=== PATIENT | female | born 1960 | race American Indian/Alaskan Native ===

== ENCOUNTER 2017-06-17 10:17 | Emergency (ER) | payer SELFPAY ==
[2017-06-17 10:30] VITALS: BP 148/74
[2017-06-17] MEDS ORDERED: BENADRYL PO ONE (11:42)
[2017-06-17] MEDS ORDERED: PEPCID PO ONE (11:43)
[2017-06-17] MEDS ORDERED: DECADRON IM ONE (11:43)
--- NOTE | 2017-06-17 11:46 | Emergency Department Report ---
HPI - General Chief Complaint: Allergic Reaction - HPI HPI: 56-year-old female past medical history none presents with complaint of itchy scalp and slight forehead swelling since yesterday. Patient states she used a new hair dye which she has not used before and subsequently developed itchy scalp with bumpy skin and slight forehead/periorbital swelling since yesterday. Patient denies any respiratory distress any difficulty breathing any lip swelling or tongue swelling. Patient is awake alert and oriented 3 speaking in full sentences does not appear to be in acute distress. Denies palpitations shortness of breath or any diffuse distributed rash. Patient showing me the hair product that she used which caused the allergic reaction. Took Benadryl at home with some relief of her symptoms ED Past Medical Hx - Past Medical History Previous Medical History?: No - Surgical History Past Surgical History?: No - Social History Smoking Status: Current Every Day Smoker Substance Use Type: None - Medications Home Medications: Home Medications Medication Instructions Recorded Confirmed Last Taken Type EPINEPHrine [Epipen] 0.3 mg IJ ONCE #1 auto.injct 06/17/17 Unknown Rx Famotidine [Pepcid] 20 mg PO BID PRN #30 tablet 06/17/17 Unknown Rx Hydrocortisone 1% [Hydrocortisone 1 applicatio TP TID PRN #1 tube 06/17/17 Unknown Rx 1% CREAM] Loratadine [Claritin] 10 mg PO DAILY #14 tablet 06/17/17 Unknown Rx diphenhydrAMINE [Benadryl CAP] 25 mg PO Q8HR PRN #30 capsule 06/17/17 Unknown Rx ED Review of Systems ROS: Stated complaint: ALLERGIC REACTION Other details as noted in HPI Constitutional: denies: chills, fever Eyes: denies: eye pain, eye discharge, vision change ENT: denies: ear pain, throat pain Respiratory: denies: cough, shortness of breath, wheezing Cardiovascular: denies: chest pain, palpitations Endocrine: no symptoms reported Gastrointestinal: denies: abdominal pain, nausea, diarrhea Genitourinary: denies: urgency, dysuria, discharge Musculoskeletal: denies: back pain, joint swelling, arthralgia Skin: rash, pruritus. denies: lesions Neurological: denies: headache, weakness, paresthesias Psychiatric: denies: anxiety, depression Hematological/Lymphatic: denies: easy bleeding, easy bruising Physical Exam - Physical Exam Vital Signs: Vital Signs 06/17/17 10:25 Temperature 98.3 F Pulse Rate 78 Respiratory 14 Rate Blood Pressure 148/74 O2 Sat by Pulse 99 Oximetry General: General: Well appearing, well nourished, in no distress. Oriented x 3, normal mood and affect .Ambulating without difficulty. Skin: Itchy rash around around edge of/border of scalp HEENT: Head: Normocephalic, atraumatic, no visible or palpable masses, depressions, or scaring. Eyes: EOMI,PERRLA Ears: EACs clear, TMs translucent & mobile, ossicles nl appearance, hearing intact. Nose: No external lesions, mucosa non-inflamed, septum and turbinates normal Pharynx: no oropharyngeal swelling Mucosa non-inflamed, no tonsillar hypertrophy or exudate Neck: Supple, without lesions, bruits, or adenopathy, thyroid non-enlarged and non-tender Heart: No cardiomegaly or thrills; regular rate and rhythm, no murmur or gallop Lungs: Clear to auscultation b/l Abdomen: Bowel sounds normal, no tenderness, organomegaly, masses, or hernia Musculoskeletal: Normal gait and station. No misalignment, asymmetry, crepitation, defects, tenderness, masses, effusions, decreased range of motion, instability, atrophy or abnormal strength or tone in the head, neck, spine, ribs, pelvis or extremities. Neurologic: CN 2-12 normal. Sensation to pain, touch, and proprioception normal. DTRs normal in upper and lower extremities. No pathologic reflexes. ED Course Vital Signs 06/17/17 10:25 Temperature 98.3 F Pulse Rate 78 Respiratory 14 Rate Blood Pressure 148/74 O2 Sat by Pulse 99 Oximetry ED Medical Decision Making - Medical Decision Making A/P: Contact dermatitis, allergic reaction 1-patient has irritated scalp slight forehead/upper orbital swelling but minimal. No lip tongue or oral pharyngeal swelling on clinical exam 2-oatmeal baths, topical hydrocortisone, Benadryl when necessary, Pepcid when necessary, patient given 1 dose of Decadron in the ED, EpiPen for anaphylaxis/ angioedema. I educated patient on signs and symptoms of anaphylaxis and angioedema and instructed her when it is appropriate to use EpiPen 3-follow-up with primary care doctor and tool engineer. I gave patient allergy clinic information [email or web address] [email or web address] stable before discharge, no clincal resp distress Critical care attestation.: If time is entered above; I have spent that time in minutes in the direct care of this critically ill patient, excluding procedure time. ED Disposition Clinical Impression: Contact dermatitis Qualifiers: Contact dermatitis type: allergic Contact dermatitis trigger: dye Qualified Code(s): L23.4 - Allergic contact dermatitis due to dyes Allergic reaction Qualifiers: Encounter type: initial encounter Qualified Code(s): T78.40XA - Allergy, unspecified, initial encounter Disposition: - TO HOME OR SELFCARE Is pt being admited?: No Does the pt Need Aspirin: No Condition: Stable Instructions: Urticaria (ED), Angioedema (ED), Contact Dermatitis (ED) Prescriptions: diphenhydrAMINE [Benadryl CAP] 25 mg PO Q8HR PRN #30 capsule PRN Reason: Allergic Reaction EPINEPHrine [Epipen] 0.3 mg IJ ONCE #1 auto.injct Famotidine [Pepcid] 20 mg PO BID PRN #30 tablet PRN Reason: Allergic Reaction Hydrocortisone 1% [Hydrocortisone 1% CREAM] 1 applicatio TP TID PRN #1 tube PRN Reason: Itching Loratadine [Claritin] 10 mg PO DAILY #14 tablet Referrals: [facility] [Outside] - 3-5 Days [facility] [Provider Group] - 3-5 Days Forms: Work/School Release Form(ED) Time of Disposition: 11:52
== END 2017-06-17 12:30 | disposition home or self-care (01) ==
LOC: ED 10:17
DX: L23.4 Allergic contact dermatitis due to dyes (principal); F17.200 Nicotine dependence, unspecified, uncomplicated
CPT/HCPCS: 96372; 99283; J1100

== ENCOUNTER 2018-01-21 22:46 | Emergency (ER) | payer OTHER ==
--- NOTE | 2018-01-22 01:27 | Emergency Department Report ---
HPI - HPI HPI: This is a 57-year-old female here report that she is having an itchy scalp and some around her eyes since 2 days ago when she used hair dye and here growth product to her here. She said her scabs are itchy. Denies any pain. Denies any swelling of tongue, throat, difficulty swallowing, swollen lips, stridor, wheezing, shortness of breath or chest pain. Denies any coughing or drooling. She said she is having facial swelling to both eyes. She denies any pain. Patient was here on 06/17/2017 for allergic reaction. She was given EpiPen but she said she did not get that filled. She did not take anything over-the- counter she says she came to the hospital to be seen. <YUE WASHINGTON - Last Filed: 01/22/18 01:49> <LAKESHA HOOVER - Last Filed: 01/22/18 17:00> - General Chief Complaint: Allergic Reaction Time Seen by Provider: 01/22/18 00:50 ED Past Medical Hx - Past Medical History Previous Medical History?: Yes Additional medical history: Allergic reaction - Surgical History Past Surgical History?: No - Family History Family history: hypertension - Social History Smoking Status: Current Every Day Smoker <YUE WASHINGTON - Last Filed: 01/22/18 01:49> <LAKESHA HOOVER - Last Filed: 01/22/18 17:00> - Medications Home Medications: Home Medications Medication Instructions Recorded Confirmed Last Taken Type Famotidine [Pepcid] 20 mg PO BID PRN #30 tablet 06/17/17 Unknown Rx Hydrocortisone 1% [Hydrocortisone 1 applicatio TP TID PRN #1 tube 06/17/17 Unknown Rx 1% CREAM] Loratadine [Claritin] 10 mg PO DAILY #14 tablet 06/17/17 Unknown Rx diphenhydrAMINE [Benadryl CAP] 25 mg PO Q8HR PRN #30 capsule 06/17/17 Unknown Rx EPINEPHrine [Epipen] 0.3 mg IJ ONCE PRN #1 auto.injct 01/22/18 Unknown Rx Prednisone [predniSONE 10 mg 10 mg PO .TAPER 6 Days #1 tab.ds.pk 01/22/18 Unknown Rx (6-Day Pack, 21 Tabs)] hydrOXYzine HCL [Atarax] 25 mg PO Q6HR PRN #12 oral.liqd 01/22/18 Unknown Rx ED Review of Systems ROS: Stated complaint: ALLERGIC REACTION Other details as noted in HPI Constitutional: denies: chills, fever Eyes: other (swelling below her eyes). denies: eye pain, eye discharge, vision change ENT: denies: ear pain, throat pain, epistaxis, congestion Respiratory: denies: cough, shortness of breath, SOB with exertion, stridor, wheezing Cardiovascular: denies: chest pain, palpitations, dyspnea on exertion, edema, syncope, paroxysmal nocturnal dyspnea Gastrointestinal: denies: nausea, vomiting Musculoskeletal: denies: back pain, joint swelling, arthralgia Skin: pruritus. denies: rash, lesions Neurological: denies: headache, weakness, numbness, paresthesias, confusion, abnormal gait, vertigo <YUE WASHINGTON - Last Filed: 01/22/18 01:49> ROS: Stated complaint: ALLERGIC REACTION Other details as noted in HPI <LAKESHA HOOVER - Last Filed: 01/22/18 17:00> Physical Exam - Physical Exam Vital Signs: Vital Signs 01/21/18 01/21/18 23:05 23:19 Temperature 98.3 F 98.3 F Pulse Rate 75 72 Respiratory 18 18 Rate Blood Pressure 150/74 150/74 O2 Sat by Pulse 99 97 Oximetry General: This is a 57-year-old female well-nourished well-developed in no acute distress. She is nontoxic in appearance Physical Exam: Head: Normocephalic atraumatic. Scalp examination and normal. Nontender to palpate. No abrasion, contusion or hematoma noted. Mouth: Oral mucosa moist, tongue is normal, uvula is midline, no ENTRY LEVEL FINANCE or drooling , oral airways patent and uvula is midline. Neck: No breathing or stridor. Supple, no tracheal deviation, no lymphadenopathy and full range of motion Ears: Bilateral TMs pearly fortune and bilateral EAC normal exam. Bilateral tract is nontender to palpate, no mastoid bone tenderness. Nose: Nasal mucosa without any erythema or swelling or drainage. Bilateral frontal and mastoid sinuses nontender to palpate. Nasal septum normal and nontender to palpate Eyes: Bilateral pupils equal and reactive to light, conjunctival injection or icterus. Bilateral EOM intact and normal accommodation. No nystagmus. Lids are normal. She has swelling below her lower lids that is not erythema and nontender to palpate. No induration and no sign of cellulitis. No miosis, chemosis or ptosis. No subconjunctival hemorrhage. Skin: Clean dry and intact, no rash or lesions. Extremity: No cce. + 2 pulses in all extremities, no neurovascular compromise Mood: Normal mood and behavior <YUE WASHINGTON - Last Filed: 01/22/18 01:49> - Physical Exam Vital Signs: Vital Signs 01/21/18 01/21/18 01/22/18 23:05 23:19 02:26 Temperature 98.3 F 98.3 F Pulse Rate 75 72 65 Respiratory 18 18 20 Rate Blood Pressure 150/74 150/74 Blood Pressure 139/71 [Right] O2 Sat by Pulse 99 97 98 Oximetry <LAKESHA HOOVER - Last Filed: 01/22/18 17:00> ED Course Vital Signs 01/21/18 01/21/18 23:05 23:19 Temperature 98.3 F 98.3 F Pulse Rate 75 72 Respiratory 18 18 Rate Blood Pressure 150/74 150/74 O2 Sat by Pulse 99 97 Oximetry - Reevaluation(s) Reevaluation #1: 01/22/18 02:00 Patient given Solu-Medrol 125 mg I am emergency room patient given Solu-Medrol 125 mg IM and emergency room. She is here by herself so unable to give Benadryl and her allergic reaction is localized to a chin to scalp and swelling below lower eyelids. Reevaluation #2: 01/22/18 02:14 Swelling and itching improving. <YUE WASHINGTON - Last Filed: 01/22/18 01:49> Vital Signs 01/21/18 01/21/18 01/22/18 23:05 23:19 02:26 Temperature 98.3 F 98.3 F Pulse Rate 75 72 65 Respiratory 18 18 20 Rate Blood Pressure 150/74 150/74 Blood Pressure 139/71 [Right] O2 Sat by Pulse 99 97 98 Oximetry <LAKESHA HOOVER - Last Filed: 01/22/18 17:00> ED Medical Decision Making - Medical Decision Making ED course This is a 7-year-old female presented emergency room reports that she has 2 days of symptoms of itchy scalp and swelling below her lower eyelids. She said she was using the ear dye and also treatment called here for her to either and she had a recurrent allergic reaction from this. Reaction is localized the scalp with itching and also swelling below eyelids. She has no respiratory or oral symptoms. No medication was taken and she says she is here to be seen. Patient was examined by myself and found to have localized minor allergic reaction with swelling the facial areas below eyes and itching to scalp without any other findings to scalp. Patient seems to be better with steroid. I discussed the patient that she needs to stop using products and she is to go to her allergies or trust officer to get allergy testing because she was here in and was treated for allergies which was different from today. She was also given EpiPen prescription which she said she did not fill. I discussed with her diagnosis and told her that she needs to carry EpiPen just in case the allergic reaction is worse than today's or previous. She voiced understanding. A/P 1: Minor allergic reaction-from here products that is localized to swelling to facial area and itching to scalp. Patient given Solu-Medrol 125 mg IM and she is better. She'll be discharged home on Medrol Dosepak and also EpiPen. She preferred to trust officer for allergy testing 2: Pruritus scalp-patient will be discharged with prescription for Atarax. Patient educated on medication, allergic reaction, went to use EpiPen, diagnosis and to follow-up with recapper to have skin testing done to see what she is allergic to. She voiced understanding. Patient discharged home in stable condition with prescription for Atarax, Medrol Dosepak and EpiPen. Her vital signs are stable and she is afebrile and swollen is getting better around eyes and she said her age and is better. She is nontoxic in appearance. Discharge home to follow up with her primary care physician in 2 days and trust officer for skin testing in 2-3 days. She voiced understanding. - Differential Diagnosis angioedema, minor allergic reaction, pediculosis, tinea <YUE WASHINGTON - Last Filed: 01/22/18 01:49> - Medical Decision Making I did not see or evaluate the patient. I was available for consultation the entire time the patient was in the ER. Dylan Hoover MD <LAKESHA HOOVER - Last Filed: 01/22/18 17:00> Critical care attestation.: If time is entered above; I have spent that time in minutes in the direct care of this critically ill patient, excluding procedure time. <PADMINIYUE Bel - Last Filed: 01/22/18 01:49> Critical care attestation.: If time is entered above; I have spent that time in minutes in the direct care of this critically ill patient, excluding procedure time. <LAKESHA HOOVER - Last Filed: 01/22/18 17:00> ED Disposition Is pt being admited?: No Does the pt Need Aspirin: No <YUE WASHINGTON - Last Filed: 01/22/18 01:49> <LAKESHA HOOVER - Last Filed: 01/22/18 17:00> Disposition: DC-01 TO HOME OR SELFCARE Condition: Stable Instructions: Epinephrine (Injection), Allergies (ED), Itchy Skin (ED) Additional Instructions: Please use EpiPen if you develop swelling to lips, tongue, difficulty breathing , shortness of breath stridor wheeze in, cough and swelling of throat. Use Medrol Dosepak as instructed Use Atarax for itching as needed Had allergic reaction before and was prescribed EpiPen so you'll need to go to trust officer to get allergy testing to see what you're allergic to. These return to the emergency room if your condition worsens to include swelling to throat, difficulty breathing, chest pain and tightness, wheezing or stridor, cough, swelling of tongue or lips or increased swelling to facial area. Prescriptions: EPINEPHrine [Epipen] 0.3 mg IJ ONCE PRN #1 auto.injct PRN Reason: Anaphylaxis hydrOXYzine HCL [Atarax] 25 mg PO Q6HR PRN #12 oral.liqd PRN Reason: Itching Prednisone [predniSONE 10 mg (6-Day Pack, 21 Tabs)] 10 mg PO .TAPER 6 Days #1 tab.ds.pk Referrals: PRIMARY CARE, [Primary Care Provider] - 01/23/18 RADHA BAILON MD [Staff Physician] - 2-3 Days [facility] [Outside] - 01/23/18 Forms: Work/School Release Form(ED)
[2018-01-22 02:27] VITALS: BP 139/71
== END 2018-01-22 02:27 | disposition home or self-care (01) ==
LOC: ED 22:46
DX: T78.49XA Other allergy, initial encounter (principal); X58.XXXA Exposure to other specified factors, initial encounter; F17.200 Nicotine dependence, unspecified, uncomplicated
CPT/HCPCS: 96372; 99282; J2930

== ENCOUNTER 2018-03-02 07:13 | Outpatient (CLI) | payer OTHER ==
--- NOTE | 2018-03-03 08:36 | Mammography Report ---
BILATERAL DIGITAL SCREENING MAMMOGRAM with CAD: 03/02/18 07:13:00 CLINICAL: Routine screening. COMPARISON: 12/24/14 FINDINGS: There are bilateral scattered areas of fibroglandular density.No mass, architectural distortion or suspicious calcifications. IMPRESSION: No mammographic evidence of malignancy. BI-RADS CATEGORY: 1 -- Negative RECOMMENDATION: Routine mammographic screening in one year. COMMENT: Patient follow-up letters are generated by our [employer] application.
== END 2018-03-02 07:14 | disposition home or self-care (01) ==
LOC: MAMMO 07:13
PROVIDERS: ATTEND Nurse Practitioner Gerontology
DX: Z12.31 Encounter for screening mammogram for malignant neoplasm of breast (principal); F17.210 Nicotine dependence, cigarettes, uncomplicated
CPT/HCPCS: 77067

== ENCOUNTER 2020-05-10 08:24 | Outpatient (CLI) | payer OTHER ==
--- NOTE | 2020-05-12 08:10 | Mammography Report ---
DIGITAL SCREENING MAMMOGRAM WITH CAD, 05/10/2020 INDICATION: Routine screening mammography. TECHNIQUE: Digital bilateral 2D mammography was obtained in the craniocaudal and mediolateral obliq ue projections. This examination was interpreted with the benefit of Computer-Aided Detection analysi s. COMPARISON: 03/12/2019. FINDINGS: Breast Density: There are scattered areas of fibroglandular density. There is no evidence of dominant mass, suspicious calcifications or architectural distortion in eithe r breast. IMPRESSION: Follow up recommendation: Routine yearly BI-RADS Category 1: Negative. A "normal" or negative report should not discourage follow up or biopsy of a clinically significant f inding. A written summary of these findings will be mailed to the patient. The patient will be entered into a mammography reporting system which will generate a reminder letter for the patient's next appointmen t at the appropriate interval. The [employer] recommends yearly mammograms starting at age 40 and continuing as l armando as a woman is in good health. Breast MRI is recommended for women with an approximate 20-25% or greater lifetime risk of breast cancer, including women with a strong family history of breast or ova sarthak cancer or who have been treated for Hodgkin's disease. Signer Name: Alex Hall MD Signed: 05/12/2020 8:06 AM Workstation Name: [email or web address]
== END 2020-05-10 08:25 | disposition home or self-care (01) ==
LOC: SPVWC 08:24
PROVIDERS: ATTEND Physician Assistant Medical
DX: Z12.31 Encounter for screening mammogram for malignant neoplasm of breast (principal)
CPT/HCPCS: 77067

== ENCOUNTER 2021-04-27 08:56 | Outpatient (CLI) | payer BC ==
--- NOTE | 2021-04-27 10:30 | Mammography Report ---
DIGITAL SCREENING MAMMOGRAM WITH CAD, 04/27/2021 CLINICAL INFORMATION / INDICATION: Routine screening mammography. TECHNIQUE: Digital bilateral 2D mammography was obtained in the craniocaudal and mediolateral obliqu e projections. This examination was interpreted with the benefit of Computer-Aided Detection analysis . COMPARISON: 03/12/2019, 05/10/2020 FINDINGS: Breast Density: There are scattered areas of fibroglandular density. No dominant mass, suspicious calcifications, or architectural distortion in either breast. No interval change. IMPRESSION: No mammographic evidence of malignancy. Follow up recommendation: Routine yearly BI-RADS Category 1: Negative. A "normal" or negative report should not discourage follow up or biopsy of a clinically significant f inding. A written summary of these findings will be mailed to the patient. The patient will be entered into a mammography reporting system which will generate a reminder letter for the patient's next appointmen t at the appropriate interval. The [employer] recommends yearly mammograms starting at age 40 and continuing as l armando as a woman is in good health. Breast MRI is recommended for women with an approximate 20-25% or greater lifetime risk of breast cancer, including women with a strong family history of breast or ova sarthak cancer or who have been treated for Hodgkin's disease. Signer Name: Sara Thornton MD Signed: 04/27/2021 10:26 AM Workstation Name: [email or web address]
== END 2021-04-27 08:57 | disposition home or self-care (01) ==
LOC: MAMMO 08:56
PROVIDERS: ATTEND Physician Assistant Medical
DX: Z12.31 Encounter for screening mammogram for malignant neoplasm of breast (principal); N64.89 Other specified disorders of breast
CPT/HCPCS: 77067

== ENCOUNTER 2021-05-31 12:15 | Inpatient (IN) | payer BC ==
--- NOTE | 2021-05-31 13:00 | Emergency Department Report ---
ED GI Bleed HPI - General Chief complaint: GI Bleed Stated complaint: BLOODY BOTTOM Time Seen by Provider: 05/31/21 12:31 Source: patient Mode of arrival: Ambulatory Limitations: No Limitations - History of Present Illness Initial comments: 60-year-old female with no significant past medical history presents to the hospital complaining of bloody stool for the last 2 days patient started last night. Patient had 1 bloody stool output last night and another one this morning. This morning she had gross blood without stool output. Patient complains of intermittent cramping left lower quadrant and suprapubic abdominal pain without aggravating or alleviating factors. She denies rectal pain nausea, vomiting, weakness, lightheadedness, or syncope. Last colonoscopy was normal 12 years ago. Patient denies regular aspirin or NSAID use - Related Data Previous Rx's Medication Instructions Recorded Last Taken Type Famotidine [Pepcid] 20 mg PO BID PRN #30 tablet 06/17/17 Unknown Rx Hydrocortisone 1% [Hydrocortisone 1 applicatio TP TID PRN #1 tube 06/17/17 Unknown Rx 1% CREAM] Loratadine (Nf) [Claritin] 10 mg PO DAILY #14 tablet 06/17/17 Unknown Rx diphenhydrAMINE [Benadryl CAP] 25 mg PO Q8HR PRN #30 capsule 06/17/17 Unknown Rx EPINEPHrine [Epipen] 0.3 mg IJ ONCE PRN #1 auto.injct 01/22/18 Unknown Rx Prednisone [predniSONE 10 mg 10 mg PO .TAPER 6 Days #1 tab.ds.pk 01/22/18 Unkno wn Rx (6-Day Pack, 21 Tabs)] hydrOXYzine HCL [Atarax] 25 mg PO Q6HR PRN #12 oral.liqd 01/22/18 Unknown Rx Allergies Allergy/AdvReac Type Severity Reaction Status Date / Time No Known Allergies Allergy Verified 05/31/21 12:44 ED Review of Systems ROS: Stated complaint: BLOODY BOTTOM Other details as noted in HPI Comment: All other systems reviewed and negative ED Past Medical Hx - Past Medical History Previous Medical History?: Yes Hx Arthritis: Yes Additional medical history: Allergic reaction - Surgical History Past Surgical History?: Yes Additional Surgical History: - Social History Smoking Status: Current Every Day Smoker - Medications Home Medications: Home Medications Medication Instructions Recorded Confirmed Last Taken Type Famotidine [Pepcid] 20 mg PO BID PRN #30 tablet 06/17/17 Unknown Rx Hydrocortisone 1% [Hydrocortisone 1 applicatio TP TID PRN #1 tube 06/17/17 Unknown Rx 1% CREAM] Loratadine (Nf) [Claritin] 10 mg PO DAILY #14 tablet 06/17/17 Unknown Rx diphenhydrAMINE [Benadryl CAP] 25 mg PO Q8HR PRN #30 capsule 06/17/17 Unknown Rx EPINEPHrine [Epipen] 0.3 mg IJ ONCE PRN #1 auto.injct 01/22/18 Unknown Rx Prednisone [predniSONE 10 mg 10 mg PO .TAPER 6 Days #1 tab.ds.pk 01/22/18 Unknown Rx (6-Day Pack, 21 Tabs)] hydrOXYzine HCL [Atarax] 25 mg PO Q6HR PRN #12 oral.liqd 01/22/18 Unknown Rx ED Physical Exam - General Limitations: No Limitations - Other Other exam information: General: No acute distress Head: Atraumatic Eyes: normal appearance ENT: Moist mucous membranes Neck: Normal appearance, no midline tenderness Chest: Clear to auscultation bilaterally CV: Regular rate and rhythm Abdomen: Soft, normal bowel sounds, nontender, nondistended, no rebound or guarding Rectal: Guaiac positive brown bloody stool Back: Normal inspection Extremity: Normal inspection, full range of motion Neuro: Alert O x 3, no facial asymmetry, speech clear, no gross motor sensory deficit Psych: Appropriate behavior Skin: No rash ED Course Vital Signs 05/31/21 05/31/21 05/31/21 12:21 12:35 13:00 Temperature 99.0 F Pulse Rate 80 86 60 Respiratory 18 15 18 Rate Blood Pressure 128/70 140/72 O2 Sat by Pulse 100 100 98 Oximetry 05/31/21 05/31/21 05/31/21 13:30 14:00 14:34 Temperature Pulse Rate 62 58 L Respiratory 20 13 Rate Blood Pressure 140/72 139/68 139/68 O2 Sat by Pulse 98 99 100 Oximetry - Consultations Consultation #1: 05/31/21 15:33 Dr Pascual TYLER consulted. Here in ED to evaluate patient. ED Medical Decision Making - Lab Data Result diagrams: 05/31/21 12:48 05/31/21 12:48 Lab Results 05/31/21 05/31/2105/31/21 Range/Units 12:48 12:48 12:48 WBC 6.4 (4.5-11.0) K/mm3 RBC 3.57 L (3.65-5.03) M/mm3 Hgb 12.0 (10.1-14.3) gm/dl Hct 34.3 (30.3-42.9) % MCV 96 (79-97) fl MCH 34 H (28-32) pg MCHC 35 H (30-34) % RDW 13.3 (13.2-15.2) % Plt Count 255 (140-440) K/mm3 Lymph % (Auto) 34.7 (13.4-35.0) % [place] % (Auto) 7.4 H (0.0-7.3) % Eos % (Auto) 0.4 (0.0-4.3) % Baso % (Auto) 0.6 (0.0-1.8) % Lymph # (Auto) 2.2 (1.2-5.4) K/mm3 [place] # (Auto) 0.5 (0.0-0.8) K/mm3 Eos # (Auto) 0.0 (0.0-0.4) K/mm3 Baso # (Auto) 0.0 (0.0-0.1) K/mm3 Seg Neutrophils % 56.9 (40.0-70.0) % Seg Neutrophils # 3.6 (1.8-7.7) K/mm3 PT 16.0 H (12.2-14.9) Sec. INR 1.16 H (0.87-1.13) APTT 28.6 (24.2-36.6) Sec. Sodium 140 (137-145) mmol/L Potassium 3.8 (3.6-5.0) mmol/L Chloride 107.0 (98-107) mmol/L Carbon Dioxide 22 (22-30) mmol/L Anion Gap 15 mmol/L BUN 15 (7-17) mg/dL Creatinine 0.6 (0.6-1.2) mg/dL Estimated GFR > 60 ml/min BUN/Creatinine Ratio 25 % Glucose 107 H (65-100) mg/dL Calcium 8.7 (8.4-10.2) mg/dL Total Bilirubin 0.50 (0.1-1.2) mg/dL AST 13 (5-40) units/L ALT 9 (7-56) units/L Alkaline Phosphatase 100 (35-129) units/L Total Protein 7.3 (6.3-8.2) g/dL Albumin 3.6 L (3.9-5) g/dL Albumin/Globulin Ratio 1.0 % Blood Type Antibody Screen 05/31/21 Range/Units 12:48 WBC (4.5-11.0) K/mm3 RBC (3.65-5.03) M/mm3 Hgb (10.1-14.3) gm/dl Hct (30.3-42.9) % MCV (79-97) fl MCH (28-32) pg MCHC (30-34) % RDW (13.2-15.2) % Plt Count (140-440) K/mm3 Lymph % (Auto) (13.4-35.0) % [place] % (Auto) (0.0-7.3) % Eos % (Auto) (0.0-4.3) % Baso % (Auto) (0.0-1.8) % Lymph # (Auto) (1.2-5.4) K/mm3 [place] # (Auto) (0.0-0.8) K/mm3 Eos # (Auto) (0.0-0.4) K/mm3 Baso # (Auto) (0.0-0.1) K/mm3 Seg Neutrophils % (40.0-70.0) % Seg Neutrophils # (1.8-7.7) K/mm3 PT (12.2-14.9) Sec. INR (0.87-1.13) APTT (24.2-36.6) Sec. Sodium (137-145) mmol/L Potassium (3.6-5.0) mmol/L Chloride (98-107) mmol/L Carbon Dioxide (22-30) mmol/L Anion Gap mmol/L BUN (7-17) mg/dL Creatinine (0.6-1.2) mg/dL Estimated GFR ml/min BUN/Creatinine Ratio % Glucose (65-100) mg/dL Calcium (8.4-10.2) mg/dL Total Bilirubin (0.1-1.2) mg/dL AST (5-40) units/L ALT (7-56) units/L Alkaline Phosphatase (35-129) units/L Total Protein (6.3-8.2) g/dL Albumin (3.9-5) g/dL Albumin/Globulin Ratio % Blood Type O POSITIVE Antibody Screen Negative - Radiology Data Radiology results: report reviewed CTA ABDOMEN AND PELVIS WITH CONTRAST INDICATION / CLINICAL INFORMATION: rectal bleeding 100 ML OMNI 350. TECHNIQUE: Axial CT images were obtained through the abdomen and pelvis after after injection of 100 cc of Omnipaque 350 IV contrast. 3 plane MIP / 3D reconstructions were produced. All CT scans at this location are performed using CT dose reduction for ALARA by means of automated exposure control. COMPARISON: None available. FINDINGS: AORTA: Mild calcific atherosclerosis. RENAL ARTERIES: No significant abnormality. CELIAC ARTERY: No significant abnormality. SUPERIOR MESENTERIC ARTERY: No significant abnormality. INFERIOR MESENTERIC ARTERY: No significant abnormality. RIGHT ILIAC ARTERIES: No significant abnormality.. LEFT ILIAC ARTERIES: Mild calcific atherosclerosis.. ADDITIONAL FINDINGS: There is diverticular disease involving the sigmoid colon. There is colonic wall thickening involving the descending colon with adjacent pericolonic fat stranding. There is increased density surrounding the stool within the cecum and proximal colon. There is cholelithiasis. SKELETAL: No significant abnormality. IMPRESSION: 1. Acute uncomplicated diverticulitis in the sigmoid colon. Infectious versus inflammatory colitis of the descending colon. 2. There is increased density surrounding the stool within the cecum which may be inspissated stool versus source of bleed. - Medical Decision Making 60-year-old female presents to the hospital with rectal bleeding. CT suggestive of acute on top of diverticulitis infectious versus inflammatory in origin. Patient treated with Zosyn. H&H normal. Vital signs normal. Dr. Yesi TYLER consulted at the bedside in the ED please refer to his note and orders. Hospitalist to admit - Differential Diagnosis AVM, diverticulosis, cancer, upper GI bleed Critical Care Time: No Critical care attestation.: If time is entered above; I have spent that time in minutes in the direct care of this critically ill patient, excluding procedure time. ED Disposition Clinical Impression: Acute diverticulitis, Rectal bleed, Smoker Disposition: 09 ADMITTED INPATIENT Is pt being admited?: Yes Condition: Stable Time of Disposition: 15:44 (Dr Tracey/hospitalist)
[2021-05-31 13:23] LABS: Basophils % (Auto) 0.6 % (0.0-1.8); Eosinophils % (Auto) 0.4 % (0.0-4.3); Hematocrit 34.3 % (30.3-42.9); Lymphocytes # (Auto) 2.2 K/mm3 (1.2-5.4); Lymphocytes % (Auto) 34.7 % (13.4-35.0); Mean Corpuscular HGB Conc 35 % (30-34); Mean Corpuscular Volume 96 fl (79-97); Monocytes # (Auto) 0.5 K/mm3 (0.0-0.8); Monocytes % (Auto) 7.4 % (0.0-7.3); Platelet Count 255 K/mm3 (140-440); Red Blood Count 3.57 M/mm3 (3.65-5.03); Red Cell Distribution Width 13.3 % (13.2-15.2)
[2021-05-31 13:33] LABS: INR 1.16 (0.87-1.13)
[2021-05-31 13:34] LABS: Partial Thromboplastin Time 28.6 Sec. (24.2-36.6)
[2021-05-31 13:47] LABS: Alanine Aminotransferase 9 units/L (7-56); Albumin 3.6 g/dL (3.9-5); Blood Urea Nitrogen 15 mg/dL (7-17); Calcium 8.7 mg/dL (8.4-10.2); Hemolysis Index 4
[2021-05-31 13:50] LABS: BUN/Creatinine Ratio 25
--- NOTE | 2021-05-31 15:21 | Cat Scan Report ---
CTA ABDOMEN AND PELVIS WITH CONTRAST INDICATION / CLINICAL INFORMATION: rectal bleeding 100 ML OMNI 350. TECHNIQUE: Axial CT images were obtained through the abdomen and pelvis after after injection of 100 cc of Omnipaque 350 IV contrast. 3 plane MIP / 3D reconstructions were produced. All CT scans at this location are performed using CT dose reduction for ALARA by means of automated exposure control. COMPARISON: None available. FINDINGS: AORTA: Mild calcific atherosclerosis. RENAL ARTERIES: No significant abnormality. CELIAC ARTERY: No significant abnormality. SUPERIOR MESENTERIC ARTERY: No significant abnormality. INFERIOR MESENTERIC ARTERY: No significant abnormality. RIGHT ILIAC ARTERIES: No significant abnormality.. LEFT ILIAC ARTERIES: Mild calcific atherosclerosis.. ADDITIONAL FINDINGS: There is diverticular disease involving the sigmoid colon. There is colonic wall thickening involving the descending colon with adjacent pericolonic fat stranding. There is increase d density surrounding the stool within the cecum and proximal colon. There is cholelithiasis. SKELETAL: No significant abnormality. IMPRESSION: 1. Acute uncomplicated diverticulitis in the sigmoid colon. Infectious versus inflammatory colitis of the descending colon. 2. There is increased density surrounding the stool within the cecum which may be inspissated stool v ersus source of bleed. Signer Name: aCm Mari DO Signed: 05/31/2021 3:17 PM Workstation Name: [id number]
[2021-05-31] MEDS ORDERED: PIPERACIL/TAZOBACTA 4.5/NS 100 4.5 GM/100 ML VIAL IV ONE (15:23)
--- NOTE | 2021-05-31 15:45 | History and Physical Report ---
History of Present Illness Chief complaint: My stomach hurts and I have blood in my stool History of present illness: 60 YO Female with Seasonal Allergies, OA, Nicotine Dependence, Obesity presents to ED for evaluation. Pt reports "my stomach hurts and I have blood in my stool". Patient states that she had experienced multiple episodes of blood- tinged stool over the past 2 days with a bloody bowel movement that occurred this morning. Patient also reports abdominal pain. Patient states that pain is localized to the left lower quadrant, pain is 5/10, crampy in nature, without exacerbating or alleviating factors. Patient transported to [facility] via private vehicle for further care and evaluation of the aforementioned symptoms. The patient was seen and evaluated in the emergency department. All lab and imaging studies reviewed. Patient underwent CT scan of the abdomen and pelvis which revealed acute diverticulitis. Patient admitted to medical floor due to increased risk of worsening symptoms and initiated on IV antibiotic therapy. Patient denies fever, chills, chest pain, palpitation, productive cough, skin rash, recent ill contacts, ingestion of food/water from new or different sources, or known exposure to COVID-19. No prior admission for review. All medication listed at time of admission has been reconciled. Advanced care planning conducted in ED. Past History Past Medical History: arthritis, other (See HPI) Past Surgical History: Social history: single, smoking Family history: diabetes, hypertension Medications and Allergies Allergies Allergy/AdvReac Type Severity Reaction Status Date / Time No Known Allergies Allergy Verified 05/31/21 12:44 Home Medications Medication Instructions Recorded Confirmed Last Taken Type Famotidine [Pepcid] 20 mg PO BID PRN #30 tablet 06/17/17 Unknown Rx Hydrocortisone 1% [Hydrocortisone 1 applicatio TP TID PRN #1 tube 06/17/17 Unknown Rx 1% CREAM] Loratadine (Nf) [Claritin] 10 mg PO DAILY #14 tablet 06/17/17 Unknown Rx diphenhydrAMINE [Benadryl CAP] 25 mg PO Q8HR PRN #30 capsule 06/17/17 Unknown Rx EPINEPHrine [Epipen] 0.3 mg IJ ONCE PRN #1 auto.injct 01/22/18 Unknown Rx Prednisone [predniSONE 10 mg 10 mg PO .TAPER 6 Days #1 tab.ds.pk 01/22/18 Unknown Rx (6-Day Pack, 21 Tabs)] hydrOXYzine HCL [Atarax] 25 mg PO Q6HR PRN #12 oral.liqd 01/22/18 Unknown Rx Active Meds: Active Medications Piperacillin Sod/Tazobactam Sod (Zosyn/Ns 4.5gm/100ml) 4.5 gm in 100 mls @ 200 mls/hr IV ONCE ONE; Protocol Stop: 05/31/21 15:52 Review of Systems Constitutional: no weight loss, no weight gain, no chills, no sweats Ears, nose, mouth and throat: no ear pain, no ear discharge, no decreased hearing, no nose pain, no nasal discharge Breasts: no change in shape, no mass Cardiovascular: no chest pain, no rapid/irregular heart beat, no syncope Respiratory: no cough, no cough with sputum, no excessive sputum, no shortness of breath, no dyspnea on exertion Gastrointestinal: abdominal pain, BRBPR, no nausea, no vomiting, no change in bowel habits, no hematemesis, no early satiety, no heartburn Genitourinary Female: no pelvic pain, no flank pain, no dysuria, no urgency Rectal: no pain, no incontinence, no bleeding Musculoskeletal: no neck pain, no shooting arm pain, no arm numbness/tingling, no shooting leg pain, no leg numbness/tingling Integumentary: no rash, no pruritis, no redness, no sores, no jaundice, no boils Neurological: no head injury, no weakness, no parathesias, no tingling, no seizures, no tremors Psychiatric: no anxiety, no change in sleep habits, no insomnia, no change in appetite, no change in libido, no disorientation Endocrine: no cold intolerance, no polyphagia, no polydipsia, no nocturia, no excessive sweating, no weight change Hematologic/Lymphatic: no easy bruising, no easy bleeding, no lymphadenopathy Allergic/Immunologic: no urticaria, no allergic rhinitis, no wheezing, no persistent infections, no anaphylaxis, no angioedema Exam - Constitutional Vitals: Temp Pulse Resp BP Pulse Ox 99.0 F 58 L 13 139/68 100 05/31/21 12:21 05/31/21 14:00 05/31/21 14:00 05/31/21 14:34 05/31/21 14:34 General appearance: Present: mild distress, obese - EENT Eyes: Present: PERRL ENT: hearing intact, clear oral mucosa - Neck Neck: Present: supple, normal ROM - Respiratory Respiratory effort: normal Respiratory: bilateral: CTA - Cardiovascular Heart Sounds: Present: S1 & S2. Absent: rub, click - Extremities Extremities: pulses symmetrical, No edema Peripheral Pulses: within normal limits - Abdominal General gastrointestinal: Present: soft, tender, non-distended, normal bowel sounds Localized gastrointestinal: tender: LUQ Female genitourinary: Present: normal - Integumentary Integumentary: Present: clear, warm, dry - Musculoskeletal Musculoskeletal: gait normal, strength equal bilaterally - Psychiatric Psychiatric: appropriate mood/affect, intact judgment & insight - Neurologic Neurologic: CNII-XII intact, moves all extremities Results - Labs CBC & Chem 7: 05/31/21 12:48 05/31/21 12:48 Labs: Abnormal lab results 05/31/21 05/31/21 05/31/21 Range/Units 12:48 12:48 12:48 RBC 3.57 L (3.65-5.03) M/mm3 MCH 34 H (28-32) pg MCHC 35 H (30-34) % [place] % (Auto) 7.4 H (0.0-7.3) % PT 16.0 H (12.2-14.9) Sec. INR 1.16 H (0.87-1.13) Glucose 107 H (65-100) mg/dL Albumin 3.6 L (3.9-5) g/dL Assessment and Plan - Patient Problems (1) Acute diverticulitis Current Visit: Yes Status: Acute Plan to address problem: CT scan abdomen and pelvis, bowel rest, IV fluid resuscitation therapy, IV antibiotic therapy, serial abdominal exam, GI team consulted in ED. (2) Nicotine dependence Current Visit: Yes Status: Acute Qualifiers: Nicotine product type: cigarettes Substance use status: in withdrawal Qualified Code(s): F17.213 - Nicotine dependence, cigarettes, with withdrawal Plan to address problem: Smoking cessation counseling, supportive care, behavior change counseling, +15 minutes. (3) Obesity (BMI 30.0-34.9) Current Visit: Yes Status: Acute Plan to address problem: Balanced diet, increase physical activity discharge, outpatient pulmonary follow -up for sleep study. (4) Osteoarthritis Current Visit: Yes Status: Acute Plan to address problem: Pain management, supportive care. (5) Rectal bleed Current Visit: Yes Status: Acute Plan to address problem: Secondary to diverticular disease, supportive care, no active bleeding at this time. GI team consulted. Further care and evaluation as per gastroenterology team. (6) DVT prophylaxis Current Visit: Yes Status: Acute Plan to address problem: SCD to bilateral lower extremities while in bed, patient is ambulatory (7) Advance care planning Current Visit: Yes Status: Acute Plan to address problem: Disease education conducted, care plan discussed, diagnoses discussed, prognosis discussed, patient is full code, patient knowledges understanding and agreement with care plan, +30 minutes.
[2021-05-31] MEDS ORDERED: ACETAMINOPHEN 325 MG TAB PO PRN (15:47)
[2021-05-31] MEDS ORDERED: MORPHINE 2 MG/1 ML INJ IV PRN (15:47)
[2021-05-31] MEDS ORDERED: ONDANSETRON 4 MG/2 ML INJ IV PRN (15:47)
[2021-05-31] MEDS ORDERED: ALBUTEROL 2.5 MG/3 ML NEBU IH PRN (15:47)
--- NOTE | 2021-05-31 15:49 | Gastroenterology Consultation ---
History of Present Illness - Reason for Consult Consult date: 05/31/21 GI bleed, abnormal CT scan jaida Requesting physician: FRANCISCA HUERTAS - History of Present Illness This is a pleasant 60-year-old female presenting with GI bleed and abnormal CAT scan Patient reports last night she had the urge to have a bowel movement in the middle of the night twice. She reports did not look at the stool so was not sure of the color but did have some lightheadedness and dizziness and chills when she was having the bowel movements She reports this afternoon was cleaning herself, not having a bowel movement, and she noticed blood on the towel when she was cleaning her bottom Reports mild abdominal pain that is intermittent, cramping, diffuse, nonspecific, duration 1 day, nonradiating, associated with the bleeding Patient of note had abnormal CAT scan which was reviewed by me Reports last colonoscopy many years ago Obtained/updated/reviewed patient's current medications Past History Past Surgical History: No surgical history Social history: smoking Family history: no significant family history Medications and Allergies Allergies Allergy/AdvReac Type Severity Reaction Status Date / Time No Known Allergies Allergy Verified 05/31/21 12:44 Home Medications Medication Instructions Recorded Confirmed Last Taken Type Famotidine [Pepcid] 20 mg PO BID PRN #30 tablet 06/17/17 Unknown Rx Hydrocortisone 1% [Hydrocortisone 1 applicatio TP TID PRN #1 tube 06/17/17 Unknown Rx 1% CREAM] Loratadine (Nf) [Claritin] 10 mg PO DAILY #14 tablet 06/17/17 Unknown Rx diphenhydrAMINE [Benadryl CAP] 25 mg PO Q8HR PRN #30 capsule 06/17/17 Unknown Rx EPINEPHrine [Epipen] 0.3 mg IJ ONCE PRN #1 auto.injct 01/22/18 Unknown Rx Prednisone [predniSONE 10 mg 10 mg PO .TAPER 6 Days #1 tab.ds.pk 01/22/18 Unknown Rx (6-Day Pack, 21 Tabs)] hydrOXYzine HCL [Atarax] 25 mg PO Q6HR PRN #12 oral.liqd 01/22/18 Unknown Rx Active Meds: Active Medications Piperacillin Sod/Tazobactam Sod (Zosyn/Ns 4.5gm/100ml) 4.5 gm in 100 mls @ 200 mls/hr IV ONCE ONE; Protocol Stop: 05/31/21 15:52 Review of Systems - Review of Systems All systems: negative (10 Systems reviewed and negative except as mentioned above in the history of present illness) Exam - Constitutional Vital Signs: Temp Pulse Resp BP Pulse Ox 99.0 F 58 L 13 139/68 100 05/31/21 12:21 05/31/21 14:00 05/31/21 14:00 05/31/21 14:34 05/31/21 14:34 General appearance: no acute distress - EENT Eyes: EOM intact ENT: hearing intact - Neck Neck: supple - Respiratory Respiratory effort: normal - Cardiovascular Rhythm: regular - Gastrointestinal General gastrointestinal: Present: soft, normal bowel sounds, other (Minimal diffuse tenderness to palpation) - Integumentary Integumentary: Present: dry - Musculoskeletal Musculoskeletal: normal - Neurologic Neurological: alert and oriented x3 - Psychiatric Psychiatric: appropriate mood/affect - Labs CBC & Chem 7: 05/31/21 12:48 05/31/21 12:48 Lab Results: Laboratory Results - last 24 hr 05/31/21 05/31/21 05/31/21 12:48 12:48 12:48 WBC 6.4 RBC 3.57 L Hgb 12.0 Hct 34.3 MCV 96 MCH 34 H MCHC 35 H RDW 13.3 Plt Count 255 Lymph % (Auto) 34.7 [place] % (Auto) 7.4 H Eos % (Auto) 0.4 Baso % (Auto) 0.6 Lymph # (Auto) 2.2 [place] # (Auto) 0.5 Eos # (Auto) 0.0 Baso # (Auto) 0.0 Seg Neutrophils % 56.9 Seg Neutrophils # 3.6 PT 16.0 H INR 1.16 H APTT 28.6 Sodium 140 Potassium 3.8 Chloride 107.0 Carbon Dioxide 22 Anion Gap 15 BUN 15 Creatinine 0.6 Estimated GFR > 60 BUN/Creatinine Ratio 25 Glucose 107 H Calcium 8.7 Total Bilirubin 0.50 AST 13 ALT 9 Alkaline Phosphatase 100 Total Protein 7.3 Albumin 3.6 L Albumin/Globulin Ratio 1.0 Blood Type Antibody Screen 05/31/21 12:48 WBC RBC Hgb Hct MCV MCH MCHC RDW Plt Count Lymph % (Auto) [place] % (Auto) Eos % (Auto) Baso % (Auto) Lymph # (Auto) [place] # (Auto) Eos # (Auto) Baso # (Auto) Seg Neutrophils % Seg Neutrophils # PT INR APTT Sodium Potassium Chloride Carbon Dioxide Anion Gap BUN Creatinine Estimated GFR BUN/Creatinine Ratio Glucose Calcium Total Bilirubin AST ALT Alkaline Phosphatase Total Protein Albumin Albumin/Globulin Ratio Blood Type O POSITIVE Antibody Screen Negative Assessment and Plan GI bleed Abdominal pain Abnormal CAT scan of abdomen Differential diagnosis includes diverticular bleed, malignancy, diverticulitis, etc. Given patient's clinical presentation, will recommend clear liquid diet antibiotics and trend hemoglobin. If patient has evidence for significant GI bleeding with drop in hemoglobin or significant clinical bleeding will require inpatient colonoscopy However if hemoglobin remains stable and there is no significant GI blood loss will recommend close outpatient follow-up with colonoscopy as soon as safe after treating her presumptive mild diverticulitis
[2021-05-31] MEDS ORDERED: metroNIDAZOLE/NS 500 MG/100 ML 500 MG/100 ML BAG IV SCH (16:00)
[2021-05-31] MEDS ORDERED: PIPERACILLIN/TAZOBACTAM 3.375 3.375 GM/50 ML BAG IV SCH ×2 (16:00→23:59)
[2021-05-31] MEDS: HYDROmorphone 1 MG/1 ML INJ IV PRN (23:21)
--- NOTE | 2021-06-01 07:47 | Gastroenterology Progress Note ---
Assessment and Plan GI bleed Abdominal pain Abnormal CAT scan of abdomen Repeat Hgb, and if stable discharge on 7 day course cipro/flagyl with close outpatient followup with me, she will need colonoscopy in the next few weeks to r/o underlying malignancy Differential diagnosis includes diverticular bleed, malignancy, diverticulitis, etc. - Patient Problems (1) Acute diverticulitis Current Visit: Yes Status: Acute (2) Rectal bleed Current Visit: Yes Status: Acute Subjective Date of service: 06/01/21 Principal diagnosis: GI bleed Interval history: AM labs not resulted yet Patient reports that overnight no more episodes of blood in the stool, pain is gradually improving Objective - Constitutional Vitals: Temp Pulse Resp BP Pulse Ox 98.9 F 56 L 18 92/66 96 06/01/21 04:43 06/01/21 04:43 06/01/21 04:43 06/01/21 04:43 06/01/21 04:43 General appearance: no acute distress - EENT Eyes: EOM intact ENT: hearing intact - Neck Neck: supple - Respiratory Respiratory effort: normal - Cardiovascular Rhythm: regular - Gastrointestinal General gastrointestinal: Present: soft, tender, normal bowel sounds - Labs CBC & Chem 7: 06/01/21 09:03 06/01/21 09:03 Labs: Laboratory Results - last 24 hr 05/31/21 05/31/21 05/31/21 12:48 12:48 12:48 WBC 6.4 RBC 3.57 L Hgb 12.0 Hct 34.3 MCV 96 MCH 34 H MCHC 35 H RDW 13.3 Plt Count 255 Lymph % (Auto) 34.7 [place] % (Auto) 7.4 H Eos % (Auto) 0.4 Baso % (Auto) 0.6 Lymph # (Auto) 2.2 [place] # (Auto) 0.5 Eos # (Auto) 0.0 Baso # (Auto) 0.0 Seg Neutrophils % 56.9 Seg Neutrophils # 3.6 PT 16.0 H INR 1.16 H APTT 28.6 Sodium 140 Potassium 3.8 Chloride 107.0 Carbon Dioxide 22 Anion Gap 15 BUN 15 Creatinine 0.6 Estimated GFR > 60 BUN/Creatinine Ratio 25 Glucose 107 H Calcium 8.7 Total Bilirubin 0.50 AST 13 ALT 9 Alkaline Phosphatase 100 Total Protein 7.3 Albumin 3.6 L Albumin/Globulin Ratio 1.0 Blood Type Antibody Screen 05/31/21 12:48 WBC RBC Hgb Hct MCV MCH MCHC RDW Plt Count Lymph % (Auto) [place] % (Auto) Eos % (Auto) Baso % (Auto) Lymph # (Auto) [place] # (Auto) Eos # (Auto) Baso # (Auto) Seg Neutrophils % Seg Neutrophils # PT INR APTT Sodium Potassium Chloride Carbon Dioxide Anion Gap BUN Creatinine Estimated GFR BUN/Creatinine Ratio Glucose Calcium Total Bilirubin AST ALT Alkaline Phosphatase Total Protein Albumin Albumin/Globulin Ratio Blood Type O POSITIVE Antibody Screen Negative
--- NOTE | 2021-06-01 08:53 | Progress Note ---
Assessment and Plan Assessment and plan: -- Acute diverticulitis Current Visit: Yes Status: Acute IV fluids, bowel rest, IV antibiotic therapy, GI evaluation noted and appreciated Clear liquid diet after GI evaluation Supportive care --Rectal bleeding; Current Visit: Yes Status: Acute Probably due to diverticular disease,no active bleeding at this time. GI evaluated the patient, closely monitor -- Nicotine dependence Current Visit: Yes Status: Acute Smoking cessation counseling,behavior change counseling, +15 minutes. Nicotine patch as needed --Obesity (BMI 30.0-34.9) Current Visit: Yes Status: Acute Dietary modification , exercise as tolerated and weight reduction when medically stable outpatient pulmonary follow-up for sleep study. --History of osteoarthritis Current Visit: Yes Status: Acute Pain management, supportive care. Avoid NSAIDs --DVT prophylaxis Current Visit: Yes Status: Acute SCD to bilateral lower extremities while in bed, patient is ambulatory --Full CODE STATUS -- Advance care planning Current Visit: Yes Status: Acute Disease education conducted, care plan discussed, diagnoses discussed, prognosis discussed, patient verbalized understanding Closely monitor the patient and adjust management as needed Follow GI evaluation and recommendations Start clear liquids, advance as tolerated Continue to monitor, if patient has no new episodes of bleeding And if patient's abdominal pain and GI symptoms improve And if patient is tolerating advanced diet May be discharged home tomorrow if okay with GI . Disposition; DC home tomorrow if patient is stable and cleared by GI History Interval history: I have seen and examined the patient at the bedside Patient's chart and medications reviewed Patient has no new episodes of GI bleeding Patient still complains of some mild abdominal pain Diverticulitis on antibiotics Hospitalist Physical - Constitutional Vitals: Temp Pulse Resp BP Pulse Ox 98.9 F 56 L 20 92/66 99 06/01/21 04:43 06/01/21 04:43 06/01/21 08:05 06/01/21 04:43 06/01/21 08:05 General appearance: Present: mild distress, well-nourished, obese - EENT Eyes: Present: PERRL, EOM intact - Neck Neck: Present: supple, normal ROM - Respiratory Respiratory effort: normal Respiratory: bilateral: diminished, negative: rales, rhonchi, wheezing - Cardiovascular Rhythm: regular Heart Sounds: Present: S1 & S2 - Extremities Extremities: no ischemia, No edema - Abdominal General gastrointestinal: soft, non-tender, non-distended, normal bowel sounds - Integumentary Integumentary: Present: clear, warm - Psychiatric Psychiatric: appropriate mood/affect, cooperative - Neurologic Neurologic: moves all extremities Results - Labs CBC & Chem 7: 06/01/21 09:03 06/01/21 09:03 Labs: Laboratory Last Values WBC 6.4 K/mm3 (4.5-11.0) 05/31/21 12:48 RBC 3.57 M/mm3 (3.65-5.03) L 05/31/21 12:48 Hgb 12.0 gm/dl (10.1-14.3) 05/31/21 12:48 Hct 34.3 % (30.3-42.9) 05/31/21 12:48 MCV 96 fl (79-97) 05/31/21 12:48 MCH 34 pg (28-32) H 05/31/21 12:48 MCHC 35 % (30-34) H 05/31/21 12:48 RDW 13.3 % (13.2-15.2) 05/31/21 12:48 Plt Count 255 K/mm3 (140-440) 05/31/21 12:48 Lymph % (Auto) 34.7 % (13.4-35.0) 05/31/21 12:48 [place] % (Auto) 7.4 % (0.0-7.3) H 05/31/21 12:48 Eos % (Auto) 0.4 % (0.0-4.3) 05/31/21 12:48 Baso % (Auto) 0.6 % (0.0-1.8) 05/31/21 12:48 Lymph # (Auto) 2.2 K/mm3 (1.2-5.4) 05/31/21 12:48 [place] # (Auto) 0.5 K/mm3 (0.0-0.8) 05/31/21 12:48 Eos # (Auto) 0.0 K/mm3 (0.0-0.4) 05/31/21 12:48 Baso # (Auto) 0.0 K/mm3 (0.0-0.1) 05/31/21 12:48 Seg Neutrophils % 56.9 % (40.0-70.0) 05/31/21 12:48 Seg Neutrophils # 3.6 K/mm3 (1.8-7.7) 05/31/21 12:48 PT 16.0 Sec. (12.2-14.9) H 05/31/21 12:48 INR 1.16 (0.87-1.13) H 05/31/21 12:48 APTT 28.6 Sec. (24.2-36.6) 05/31/21 12:48 Sodium 140 mmol/L (137-145) 05/31/21 12:48 Potassium 3.8 mmol/L (3.6-5.0) 05/31/21 12:48 Chloride 107.0 mmol/L (98-107) 05/31/21 12:48 Carbon Dioxide 22 mmol/L (22-30) 05/31/21 12:48 Anion Gap 15 mmol/L 05/31/21 12:48 BUN 15 mg/dL (7-17) 05/31/21 12:48 Creatinine 0.6 mg/dL (0.6-1.2) 05/31/21 12:48 Estimated GFR > 60 ml/min 05/31/21 12:48 BUN/Creatinine Ratio 25 % 05/31/21 12:48 Glucose 107 mg/dL (65-100) H 05/31/21 12:48 Calcium 8.7 mg/dL (8.4-10.2) 05/31/21 12:48 Total Bilirubin 0.50 mg/dL (0.1-1.2) 05/31/21 12:48 AST 13 units/L (5-40) 05/31/21 12:48 ALT 9 units/L (7-56) 05/31/21 12:48 Alkaline Phosphatase 100 units/L (35-129) 05/31/21 12:48 Total Protein 7.3 g/dL (6.3-8.2) 05/31/21 12:48 Albumin 3.6 g/dL (3.9-5) L 05/31/21 12:48 Albumin/Globulin Ratio 1.0 % 05/31/21 12:48 Blood Type O POSITIVE 05/31/21 12:48 Antibody Screen Negative 05/31/21 12:48 Microbiology: Microbiology 05/31/21 12:44 Stool Stool Occult Blood (PATSY) - Final Sanchez/IV: Voiding Method Toilet Active Medications - Current Medications Current Medications: Generic Name Dose Route Start Last Admin Trade Name Freq PRN Reason Stop Dose Admin Acetaminophen 650 mg 05/31/21 15:47 05/31/21 23:21 Acetaminophen 325 Mg Tab PO 650 mg Q4H PRN Administration Pain MILD(1-3)/Fever >100.5/BREWER Albuterol 2.5 mg 05/31/21 15:47 Albuterol 2.5 Mg/3 Ml Nebu IH Q4HRT PRN Shortness Of Breath Hydromorphone HCl 0.5 mg 05/31/21 15:47 05/31/21 23:21 Hydromorphone 1 Mg/1 Ml Inj IV 0.5 mg Q8H PRN Administration Pain , Severe (7-10) Sodium Chloride 1,000 mls @ 75 mls/hr 05/31/21 16:00 Nacl 0.9% 1000 Ml IV DIRECT ALBINA Piperacillin Sod/Tazobactam Sod 4.5 gm in 100 mls @ 200 mls/hr 06/01/21 10:00 Zosyn/Ns 4.5gm/100ml IV Q8H ALBINA Morphine Sulfate 2 mg 05/31/21 15:47 Morphine 2 Mg/1 Ml Inj IV Q4H PRN Pain, Moderate (4-6) Ondansetron HCl 4 mg 05/31/21 15:47 05/31/21 23:22 Ondansetron 4 Mg/2 Ml Inj IV 4 mg Q8H PRN Administration Nausea And Vomiting Sodium Chloride 10 ml 05/31/21 22:00 05/31/21 23:21 Sodium Chloride 0.9% 10 Ml Flush Syringe IV 10 ml BID ALBINA Administration Sodium Chloride 10 ml 05/31/21 15:47 Sodium Chloride 0.9% 10 Ml Flush Syringe IV PRN PRN LINE FLUSH
[2021-06-01] MEDS: PIPERACIL/TAZOBACTA 4.5/NS 100 4.5 GM/100 ML VIAL IV SCH ×2 (09:37→18:04)
[2021-06-01] MEDS: SODIUM CHLORIDE 0.9% 1000 ML 1,000 ML IV SCH (09:40)
[2021-06-01 09:54] LABS: Basophils % (Auto) 0.4 % (0.0-1.8); Eosinophils # (Auto) 0.1 K/mm3 (0.0-0.4); Eosinophils % (Auto) 1.3 % (0.0-4.3); Hematocrit 34.2 % (30.3-42.9); Hemoglobin 11.5 gm/dl (10.1-14.3); Lymphocytes # (Auto) 2.1 K/mm3 (1.2-5.4); Lymphocytes % (Auto) 40.3 % (13.4-35.0); Mean Corpuscular HGB Conc 34 % (30-34); Mean Corpuscular Volume 98 fl (79-97); Monocytes # (Auto) 0.5 K/mm3 (0.0-0.8); Monocytes % (Auto) 8.7 % (0.0-7.3); Platelet Count 237 K/mm3 (140-440); Red Blood Count 3.48 M/mm3 (3.65-5.03); Red Cell Distribution Width 13.5 % (13.2-15.2)
[2021-06-01 09:56] LABS: Blood Urea Nitrogen 12 mg/dL (7-17); Calcium 8.4 mg/dL (8.4-10.2); Hemolysis Index 2
[2021-06-01 09:58] LABS: BUN/Creatinine Ratio 20
[2021-06-01] MEDS: HYDROmorphone 1 MG/1 ML INJ IV PRN (11:34)
[2021-06-02] MEDS: SODIUM CHLORIDE 0.9% 1000 ML 1,000 ML IV SCH (00:52)
[2021-06-02] MEDS: PIPERACIL/TAZOBACTA 4.5/NS 100 4.5 GM/100 ML VIAL IV SCH ×2 (01:01→09:40)
[2021-06-02 06:01] VITALS: BP 124/61
--- NOTE | 2021-06-02 08:51 | Gastroenterology Progress Note ---
Assessment and Plan May discharge home today to complete a 7 day course cipro/flagyl with close outpatient followup with me, appointment already scheduled, she will need colonoscopy in the next few weeks to r/o underlying malignancy Differential diagnosis includes diverticular bleed, malignancy, diverticulitis, etc. - Patient Problems (1) Acute diverticulitis Current Visit: Yes Status: Acute (2) Rectal bleed Current Visit: Yes Status: Acute (3) Obesity (BMI 30.0-34.9) Current Visit: Yes Status: Acute (4) Abnormal CT of the abdomen Current Visit: Yes Status: Acute (5) Lower abdominal pain Current Visit: Yes Status: Acute Subjective Date of service: 06/02/21 Principal diagnosis: GI bleed Interval history: Patient reports that overnight no more episodes of blood in the stool, pain is continuing to improve She has a follow-up appointment with me in the office in a few weeks Objective - Constitutional Vitals: Temp Pulse Resp BP Pulse Ox 98.3 F 57 L 18 124/61 99 06/02/21 05:43 06/02/21 05:43 06/02/21 05:43 06/02/21 05:43 06/02/21 05:43 General appearance: no acute distress - EENT Eyes: EOM intact - Neck Neck: supple - Respiratory Respiratory effort: normal - Gastrointestinal General gastrointestinal: Present: soft, normal bowel sounds (Minimal left lower quadrant tenderness to palpation), other - Labs CBC & Chem 7: 06/01/21 09:03 06/01/21 09:03 Labs: Laboratory Results - last 24 hr 06/01/21 06/01/21 09:03 09:03 WBC 5.2 RBC 3.48 L Hgb 11.5 Hct 34.2 MCV 98 H MCH 33 H MCHC 34 RDW 13.5 Plt Count 237 Lymph % (Auto) 40.3 H [place] % (Auto) 8.7 H Eos % (Auto) 1.3 Baso % (Auto) 0.4 Lymph # (Auto) 2.1 [place] # (Auto) 0.5 Eos # (Auto) 0.1 Baso # (Auto) 0.0 Seg Neutrophils % 49.3 Seg Neutrophils # 2.6 Sodium 138 Potassium 3.8 Chloride 104.9 Carbon Dioxide 23 Anion Gap 14 BUN 12 Creatinine 0.6 Estimated GFR > 60 BUN/Creatinine Ratio 20 Glucose 95 Calcium 8.4
[2021-06-02] MEDS: HYDROmorphone 1 MG/1 ML INJ IV PRN (10:40)
--- NOTE | 2021-06-02 16:47 | Discharge Summary ---
Providers - Providers Date of Admission: 05/31/21 15:47 Date of discharge: 06/02/21 Attending physician: AMY SIMEON 05/31/21 15:30 Consult to Physician [CONS] Urgent Comment: Consulting Provider: GABBIE MIXON Physician Instructions: Reason For Exam: diverticulitis, rectal bleeding Primary care physician: SHA BERNAL Hospitalization Condition: Stable Disposition: 01 HOME / SELF CARE / HOMELESS Final Discharge Diagnosis (Prints w/discharge instructions): (1) Acute diverticulitis. Current Visit: Yes Status: Acute. (2) Rectal bleed. Current Visit: Yes Status: Acute. (3) Obesity (BMI 30.0-34.9). Current Visit: Yes Status: Acute. (4) Abnormal CT of the abdomen. Current Visit: Yes Status: Acute. (5) Lower abdominal pain. Current Visit: Yes Status: Acute Exam - Constitutional Vitals: Temp Pulse Resp BP Pulse Ox 98.3 F 57 L 20 124/61 99 06/02/21 05:43 06/02/21 05:43 06/02/21 08:00 06/02/21 05:43 06/02/21 08:00 Plan Prescriptions: Ciprofloxacin HCl [Ciprofloxacin TAB] 500 mg PO BID 14 Days #28 tablet metroNIDAZOLE [Flagyl] 500 mg PO Q8HR #21 tablet
== END 2021-06-02 15:02 | disposition home or self-care (01) | DRG 378 ==
LOC: ED 12:15 → 3A 15:47
PROVIDERS: ADMIT Internal Medicine; ATTEND Internal Medicine
DX: K57.93 Diverticulitis of intestine, part unspecified, without perforation or abscess with bleeding (principal); F17.213 Nicotine dependence, cigarettes, with withdrawal; M19.90 Unspecified osteoarthritis, unspecified site; E66.9 Obesity, unspecified; Z68.34 Body mass index [BMI] 34.0-34.9, adult; Z83.3 Family history of diabetes mellitus; Z82.49 Family history of ischemic heart disease and other diseases of the circulatory system
CPT/HCPCS: 36415; 74174; 80048; 80053; 82271; 85025; 85610; 85730; 86850; 86900; 86901; 99406; G0378; J1170; J2405; J2543; J7030; Q9967